=== PATIENT | male | born 1965 | race Caucasian/White ===

== ENCOUNTER 2024-01-02 08:01 | Emergency (ER) | payer OTHER ==
[2024-01-02 08:33] LABS: BILIRUBIN,URINE NEGATIVE (NEGATIVE); GLUCOSE, URINE (UA) NEGATIVE (NEGATIVE); KETONES,URINE (UA) 15 mg/dL (NEGATIVE); LEUKOCYTE ESTERASE, URINE NEGATIVE (NEGATIVE); NITRITE,URINE NEGATIVE (NEGATIVE); OCCULT BLOOD,URINE NEGATIVE (NEGATIVE); PROTEIN,URINE NEGATIVE (NEGATIVE); UROBILINOGEN,URINE 0.2 (NORMAL) E.U./dL (NORMAL)
[2024-01-02 08:36] LABS: CLARITY,URINE CLEAR (CLEAR)
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
[2024-01-02] MEDS: methocarbamoL 500 MG TABLET PO STA (10:13)
[2024-01-02] MEDS: ACETAMINOPHEN 500 MG TABLET PO STA (10:13)
[2024-01-02] MEDS: dexAMETHasone 4 MG TABLET PO STA (10:14)
[2024-01-02] MEDS: KETOROLAC 30 MG/ML VIAL IM STA (10:16)
[2024-01-02 10:45] VITALS: BP 128/77; O2SAT 98
== END 2024-01-02 10:34 | disposition home or self-care (01) ==
LOC: ED 08:01
DX: S39.012A Strain of muscle, fascia and tendon of lower back, initial encounter (principal); X50.9XXA Other and unspecified overexertion or strenuous movements or postures, initial encounter
CPT/HCPCS: 81003; 96372; 99283; A9270; J8540; 81001; 87086